=== PATIENT | male | born 1995 | race Caucasian/White ===

== ENCOUNTER 2022-05-26 09:53 | Emergency (ER) | payer OTHER ==
[~2022-05-26] VITALS: Ht 170.2 cm; Wt 80.0 kg
[~2022-05-26 09:53] MED LIST: CLINDAMYCIN300 M1 PO; KEFLEX500 M1 PO; NO CURRENT MEDS; ULTRAM50 MG PO
[2022-05-26 10:53] VITALS: BP 128/98
[2022-05-26] MEDS ORDERED: AMOXICILLIN500 MG PO ×2 (11:46→15:23)
== END 2022-05-26 11:55 | disposition home or self-care (01) | DRG 153 ==
LOC: ED 09:53
DX: H66.93 Otitis media, unspecified, bilateral (principal); J02.9 Acute pharyngitis, unspecified